=== PATIENT | female | born 2000 | race Caucasian/White ===

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

== ENCOUNTER 2020-04-06 18:10 | Emergency (ER) | payer OTHER ==
[~2020-04-06] VITALS: Ht 157.5 cm; Wt 69.4 kg
== END 2020-04-06 19:04 | disposition home or self-care (01) ==
LOC: ER 18:10
DX: T19.2XXA Foreign body in vulva and vagina, initial encounter (principal); Z88.5 Allergy status to narcotic agent; Z88.0 Allergy status to penicillin; Z87.891 Personal history of nicotine dependence
CPT/HCPCS: 99283

== ENCOUNTER 2020-05-11 14:54 | Emergency (ER) | payer OTHER ==
[~2020-05-11] VITALS: Ht 162.6 cm; Wt 68.0 kg
== END 2020-05-11 17:12 | disposition home or self-care (01) ==
LOC: ER 14:54
DX: N94.9 Unspecified condition associated with female genital organs and menstrual cycle (principal); Z88.5 Allergy status to narcotic agent; Z88.0 Allergy status to penicillin; Z87.891 Personal history of nicotine dependence
CPT/HCPCS: 99283

== ENCOUNTER → 2020-06-21 | Outpatient (CLI) | payer OTHER | LOC: LAB EV 15:42 → LAB SHORT 15:42 | DX: J02.9 Acute pharyngitis, unspecified (principal) | CPT/HCPCS: 87081 ==

== ENCOUNTER → 2021-01-08 | Outpatient (CLI) | payer OTHER | END | disposition home or self-care (01) | LOC: LAB 17:36 → LAB SHORT 17:36 | DX: J02.9 Acute pharyngitis, unspecified (principal) | CPT/HCPCS: 87081; 87147 ==

== ENCOUNTER 2021-08-12 05:37 | Emergency (ER) | payer OTHER ==
[~2021-08-12] VITALS: Ht 162.6 cm; Wt 73.9 kg
[2021-08-12] MEDS ORDERED: ONDA4ODT MM (08:23)
== END 2021-08-12 08:32 | disposition home or self-care (01) ==
LOC: ER 05:37
DX: K52.9 Noninfective gastroenteritis and colitis, unspecified (principal); Z88.0 Allergy status to penicillin; Z20.822 Contact with and (suspected) exposure to COVID-19
CPT/HCPCS: 81025; 96374; 99284-25; A9270; J2405; J7030